=== PATIENT | female | born 1995 ===

== ENCOUNTER 2024-06-20 | Outpatient (REF) | payer SELFPAY ==
[2024-06-21 11:11] LABS: Bacterial Vaginosis PCR POSITIVE (Negative); Candida Group PCR NOT DETECTED (Not Detect); Candida glab krusei PCR NOT DETECTED (Not Detect); Trichomonas vaginalis PCR NOT DETECTED (Not Detect)
== END 2024-06-20 00:01 | disposition home or self-care (01) ==
LOC: HO.LNP
PROVIDERS: Visit Provider General Practice
DX: R10.9 Unspecified abdominal pain (principal)
CPT/HCPCS: 81515

== ENCOUNTER 2024-06-20 10:57 | Outpatient (REF) | payer SELFPAY ==
--- OUTSIDE RECORDS SUMMARY | 2024-06-20 12:10 | XMS_ITS | Clinical Summary ---
Author Organization [employer] Address [address] [facility] 7t [place] [address] Care Team Providers Care Outside Parts Sales Name Role Phone [facility] Primary Care Provider [phone] [phone] Allergies No known active allergies Medications ibuprofen 200 MG tablet Take by mouth. Activ e copper (Paragard) IUD by Intrauterine route 1 (one) time. Active cyclobenzaprin e (Flexeril) 5 MG tabletIndicati ons:Acute left-sided low back pain without sciatica Take 1 tablet (5 mg) by mouth if needed at bedtime for muscle spasms. 20 tablet 4 025 Discontin ued(Thera py completed ) Sod Fluoride-Potas sium Nitrate 1.1-5 % paste [place] teeth for 2 minutes, morning and night. Spit, do not rinse. Do not eat or drink anything for 30 minutes following brushing. 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 10/14/2023 Encounters Date Type Department Care Team Description 06/20/2024 9:45 AM EST Office Visit [facility] [address] [place] [address] Cherie Chase MD Left flank pain (Primary Dx); Encounter for immunization 06/20/2024 Travel 06/08/2024 Patient Outreach [facility] [address] [place], [place] [phone] [place], [place], LIFE TEACHER Pre-visit Planning (SDOH screening negative and tobacco screening negative) 05/23/2024 Telephone [place] [facility] [address] [place] [address] [place], [place], LIFE TEACHER Results 04/27/2024 Telephone [facility] [address] [place] [address] Nuno Hernandez MD New patient appt. from Last 3 Months Immunizations Name Administration Dates Next Due Influenza, seasonal, injectable, preservative fr ee 06/20/2024 MMR 06/20/2024 Pfizer Covid-19 Vaccine 12+ 06/20/2024 Tdap 10/13/2023 Family History Medical History Relation Name Comments No Known Problems Father No Known Problems Mother Diabetes Mother's Sister Cancer Neg Hx Heart disease Neg Hx Relation Name Status Comments Father Alive Mother Alive Mother's Sister Social History Tobacco Use Types Packs/Day Years Used Date Smoking Tobacco: Never Smokeless Tobacco: Never Tobacco Cessation:Counseling Given: Not Answered Alcohol Use Standard Drinks/Week Comments Yes 0 (1 standard drink = 0.6 oz pur e alcohol) occassionally Housing Stability Answer Date Recorded What is your housing situation today? I have jorge watters 10/13/[address] you li ve. Do you have problems with any of the following? None of the above 10/13/2023 Food Insecurity Answer Date Recorded Within the past 12 months, y ou worried that your food would run out before you got money to buy more: Never True 10/13/2023 Within the past 12 months,th e food you bought just didn't last and you didn't have enough money to get more: Never True Transportation Answer Date Recorded In the past 12 months, has l ack of transportation kept you from medical appts, meetings, work or from getting things needed for daily living? No 10/13/2023 Utilities Answer Date Recorded In the past 12 months, has t he electric, gas, oil or water company threatened to shut off services in your home? No 10/13/2023 Depression Answer Date Recorded Patient Health Questionnaire-2 Score 0 10/13/2023 Internet Access Answer Date Recorded Internet Access Q1 Yes 06/08/2024 Internet Access Q2 Not on file 06/08/2024 Comments No Sex and Gender Information Value Date Recorded Sex Assigned at Female 04/22/2022 2:46 PM EST Legal Sex Female 2:46 PM EST Gender Identity Female 10/13/2023 9:53 AM EDT Sexual Orientation Straight 10/14/2023 2: 31 PM EDT Last Filed Vital Signs Vital Sign Reading Time Taken Comments Blood Pressure 116/75 06/20/2024 10:04 AM EST Pulse 62 06/20/2024 10:04 AM EST Temperature 36.4 ??C (97.6 ??F) 06/20/2024 10:[address] Respiratory Rate 17 06/20/2024 10:04 AM EST Oxygen Saturation 99% 06/20/2024 10:04 AM EST Inhaled Oxygen Concentration - - Weight 80.4 kg (177 lb 3.2 oz) 06/20/2024 10:04 AM EST Height 162.6 cm (5' 4 ) 06/20/2024 10:04 AM EST Body Mass Index 30.42 06/20/2024 10:04 AM EST Plan of Treatment Upcoming Encounters Date Type Department Care Team (Late st Contact Info) Description 10/13/2024 2:20 PM EDT Office Visit [place] [facility] MED[facility] [address] [place] [address] [facility] [address] [place] [address] Health Maintenance Due Date Last Done Comments Alcohol/Substance Use Screening 2005 Hepatitis C Screening 2011 Pap Smear 2014 05/07/2001 Cervical Cancer Screening 2023 HPV/Cotest 2023 Dental Oral Exam 05/11/2024 11/09/2023 Dental Prophylaxis 05/11/2024 11/09/2023 HPV Vaccines (3 - 3-dose SCD M series) 07/19/2024 03/13/2024, 01/17/2024 Depression Screening 10/12/2024 10/13/2023, 10/13/2023 Family Planning (PISQ) 10/12/2024 10/13/2023 Dental X-Ray: Bitewings 11/09/2024 11/09/2023 SDOH Screening 06/08/2025 06/08/2024 Tobacco Screening 06/20/2025 06/20/2024 Dental X-Ray: Full Mouth 11/09/2026 11/09/2023 DTaP/Tdap/Td Vaccines (2 - T d or Tdap) 10/12/2033 10/13/2023 Zoster Vaccines (1 of 2) 2043 RSV Patients and Patients Aged 60 years or older (1 - 1-dose 75+ series) 01/25/2068 HIV Screening Completed 10/13/2023 COVID-19 Vaccine Completed 06/20/2024, 12/25/2020 Influenza Vaccine Completed 06/20/2024 HIB Vaccines Aged Out No longer eligi ble based on patient's age to complete this topic Hepatitis A Vaccines Aged Out No long er eligible based on patient's age to complete this topic Hepatitis B Vaccines Discontinued IPV Vaccines Aged Out No longer eligi ble based on patient's age to complete this topic Meningococcal Vaccine Aged Out No mode ricardo eligible based on patient's age to complete this topic Pneumococcal Vaccine: Pediatrics (0 to 5 Years) and At-Risk Patients (6 to 64 Years) Aged Out No longer eligible based on patient's age to complete this topic RSV under 20 months Aged Out No longe r eligible based on patient's age to complete this topic Rotavirus Vaccines Aged Out No longer eligible based on patient's age to complete this topic Procedures Procedure Name Priority Date/Time Associated Diagnosis Comments US PELVIS TRANSVAGINAL Routine 05/19/2024 Calcification of ovary PROPHYLAXIS - ADULT Routine 11/09/2023 3 :00 PM EDT Dental plaque Dental calculus DIAGNOSTIC - DIAGNOSTIC IMAGING - INTRAORAL - COMPREHENSIVE SERIES OF RADIOGRAPHIC IMAGES Routine 11/09/2023 3:00 PM EDT COMPREHENSIVE ORAL EVALUATION - NEW OR ESTABLISHED PATIENT Routine 11/09/2023 3:00 PM EDT HIV 1/2 ANTIGEN/ANTIBODY, FOURTH GENERATION W/RFL Routine 10/13/2023 Screening for HIV (human immunodeficiency virus) HM PAP/HPV Routine 05/07/2001 11:14 AM EST from Last 3 Months or Most Recently Relevant to Health Maintenance Results * US Pelvis Transvaginal (05/19/2024) Anatomical Region Laterality Modality Pelvis Ultrasound [facility] IMG US PROCEDURES Final R esult * HIV-1/2 Antigen and Antibodies, Fourth Generation, with Reflexes (10/13/2023) Blood Venous blood specimen / Unknown [facility] LAB BLOOD ORDERABLES Manuela l Result EXTERNAL LAB * HM PAP/HPV (05/07/2001 11:14 AM EST) [facility] HEALTH MAINTENANCE Final Result from Last 3 Months or Most Recently Relevant to Health Maintenance Insurance [employer] FULL [employer] FULL [facility]AL[facility] MEDICAID LIMITED ADULT DENTAL - N FULL (MEDICAID) Care Teams Outside Parts Sales Relationship Specialty Start Date End Date Helena Ivan, LIFE TEACHER [address] [place] [address] PCP - General Family Medicine 09/17/23
--- OUTSIDE RECORDS SUMMARY | 2024-06-20 12:10 | XMS_ITS | Encounter Summary ---
Author Organization [employer] Address [address] [facility] 7t [place] [address] Care Team Providers Care Shellfish Shucker Name Role Phone [facility] [place] [facility] Primary Care Provider [phone] Reason for Visit * Reason Onset Date Comments Results 05/23/2024 Encounter Details Date Type Department Care Team ([facility] Contact Info) Description 05/23/2024 Telephone [place] [facility] MED[facility] [address] [place] [address] [facility] [address] [place] [address] Results Social History Tobacco Use Types Packs/Day Years Used Date Smoking Tobacco: Never Smokeless Tobacco: Never Alcohol Use Standard Drinks/Week Comments Yes 0 [...] Recorded Patient Health Questionnaire-2 Score 0 10/13/2023 Comments No Sex and Gender Information Value Date Recorded Sex Assigned at Female 04/22/2022 2:46 PM EST Legal Sex Female 2:46 PM EST Gender Identity Female 10/13/2023 9:53 AM EDT Sexual Orientation Straight 10/14/2023 2: 31 PM EDT documented as of this encounter Miscellaneous Notes * Telephone Encounter - Madeline Leon LPN - 05/23/2024 2:11 PM EST Call placed to patient via bail bondsman # [id number]. Provider message given to patient. No questions noted. * Telephone Encounter - NICHOLE Dietz - 05/23/2024 9:37 AM EST Pelvic ultrasound shows stable calcifications in right ovary, no follow up needed. documented in this encounter Plan of Treatment Upcoming Encounters Date Type Department Care Team (Late st Contact Info) Description 10/13/2024 2:20 PM EDT Office Visit [place] [facility] MED[facility] [address] [place] [address] Hel[place] Ivan FNP [address] [facility] [place] [address] documented as of this encounter Visit Diagnoses Not on filedocumented in this encounter Care Teams Shellfish Shucker Relationship Specialty Start Date End Date Helena Ivan FNP 70 [facility] [place] [address] PCP - General Family Medicine 09/17/23 documented as of this encounter
--- OUTSIDE RECORDS SUMMARY | 2024-06-20 12:10 | XMS_ITS | Encounter Summary ---
Author Organization [employer] Address [address] [facility] 7t [place] [address] Care Team Providers Care Pie Bakery Laborer Name Role Phone Helena Ivan DIE FITTER Primary Care Provider [phone] Encounter Details Date Type Department Care Team (Latest Contact Info) Description 06/20/2024 Travel Social History Tobacco Use Types Packs/Day Years [...] PM EDT documented as of this encounter Plan of Treatment Upcoming Encounters Date Type Department Care Team (Late st Contact Info) Description 10/13/2024 2:20 PM EDT Office Visit [place] [facility] MED[facility] [address] [place] [address] Helena Iavn FNP [address] [place] [address] documented as of this encounter Visit Diagnoses Not on filedocumented in this encounter Care Teams Pie Bakery Laborer Relationship Specialty Start Date End Date Helena Ivan FNP [address] [place] [address] PCP - General Family Medicine 09/17/23 documented as of this encounter
--- OUTSIDE RECORDS SUMMARY | 2024-06-20 12:10 | XMS_ITS | Encounter Summary ---
Author Organization [employer] Address [address] [facility] 7t [place] [address] Care Team Providers Care Search Optimization Analyst Name Role Phone [facility] Primary Care Provider [phone] Reason for Visit * Reason Comments Pre-visit Planning SDOH screening negat jose and tobacco screening negative Encounter Details Date Type Department Care Team ([facility] st Contact Info) Description 06/08/2024 Patient Outreach [facility] [address] [place] [address] [place], [place], [facility] [address] [place] [address] Pre-visit Planning (SDOH screening negative and tobacco screening negative) Social History Tobacco Use Types Packs/Day Years [...] PM EDT documented as of this encounter Progress Notes * Zuleima Bird - 06/08/2024 8:54 AM EST AMBIKA Dewey placed successful outbound call to patient for pre-visit planning. Patient name and confirmed. Patient confirms appt date and time, and has transportation. Biggest concern for appointment at this time is slight pain due to kidney stones Patient advised to bring to appointment a photo id and insurance card. Appropriate screenings completed in anticipation of appointment. documented in this encounter Plan of Treatment Upcoming Encounters Date Type Department Care Team (Late st Contact Info) Description 10/13/2024 2:20 PM EDT Office Visit [place] [facility] [address] [place] [address] [place], [place] [facility] [address] [place] [address] documented as of this encounter Visit Diagnoses Not on filedocumented in this encounter Care Teams Search Optimization Analyst Relationship Specialty Start Date End Date [facility] [place] [facility] [address] [place] [address] PCP - General Family Medicine 09/17/23 documented as of this encounter
--- OUTSIDE RECORDS SUMMARY | 2024-06-20 12:10 | XMS_ITS | Encounter Summary ---
Author Organization [employer] Address [address] [facility] 7t [place] [address] Care Team Providers Care Medical Underwriter Name Role Phone Helena Ivan [facility] Primary Care Provider [phone] Reason for Visit * Reason Comments Nerw patient Encounter Details Date Type Department Care Team (Late st Contact Info) Description 06/20/2024 9:45 AM EST Office Visit [facility] [address] [place] [address] Cherie Chase MD [address] [place], [place] [phone] Left flank pain (Primary Dx); Encounter for immunization Social History Tobacco Use Types Packs/Day Years [...] PM EDT documented as of this encounter Last Filed Vital Signs Vital Sign Reading [...] Mass Index 30.42 06/20/2024 10:04 AM EST documented in this encounter Plan of Treatment Upcoming Encounters Date Type Department Care Team (Late st Contact Info) Description 10/13/2024 2:20 PM EDT Office Visit [place] [facility] MED[facility] [address] [place] [address] [facility] [address] [place] [address] Scheduled Orders Name Type Priority Associated Diagnoses Orde r Schedule Comprehensive Metabolic Panel Lab Routine Left flank pain Expected: 06/20/2024 (Approximate), Expires: 06/20/2025 Chlamydia/N. Gonorrhoeae RNA, TMA, Urogenitial Microbiology Routine Left flank pain Expected: 06/20/2024 (Approximate), Expires: 06/20/2025 documented as of this encounter Visit Diagnoses Diagnosis Left flank pain- Primary Abdominal pain, unspecified site Encounter for immunization documented in this encounter Care Teams Medical Underwriter Relationship Specialty Start Date End Date Helena Ivan FNP [address] [place] [address] PCP - General Family Medicine 09/17/23 documented as of this encounter
--- OUTSIDE RECORDS SUMMARY | 2024-06-20 12:10 | XMS_ITS | Encounter Summary ---
Author Organization [employer] Address [address] [facility] 7t [place] [address] Care Team Providers Care Marine Structural Welder Name Role Phone [facility] Primary Care Provider [phone] Encounter Details Date Type Department Care Team (Late st Contact Info) Description 10/28/2023 Orders Only [facility] [address] [place] [address] [place], [place], [facility] [address] [place] [address] Social History Tobacco Use Types Packs/Day Years [...] 10/13/2024 2:20 PM EDT Office Visit [place] [facility] MED[facility] [address] [place] [address] Helena Ivan FNP [address] [place] [address] documented as of this encounter Procedures Procedure Name Priority Date/Time Associated Diagnosis Comments PAP/HPV Routine 05/07/2001 11:14 AM EST documented in this encounter Results * HM PAP/HPV (05/07/2001 11:14 AM EST) [facility] HEALTH MAINTENANCE Final Result documented in this encounter Visit Diagnoses Not on filedocumented in this encounter Care Teams Marine Structural Welder Relationship Specialty Start Date End Date Helena Ivan FNP 70 [place] [address] PCP - General Family Medicine 09/17/23 documented as of this encounter
[2024-06-20 13:48] LABS: Alanine Aminotransferase 13 U/L (0-31); Albumin Level 3.8 g/dL (3.5-5.0); Alkaline Phosphatase 53 U/L (39-117); Anion Gap 8 (12-20); Aspartate Amino Transferase 22 U/L (5-31); Bilirubin Total 0.7 mg/dL (0.0-1.0); Blood Urea Nitrogen 9 mg/dL (9-16); Calcium 8.6 mg/dL (8.4-10.2); Carbon Dioxide 28 mmol/L (22-29); Chloride 105 mmol/L (96-108); Estimated Glomerular Filt Rate > 60; Glucose Random 90 mg/dL (60-115); Potassium 4.1 mmol/L (3.3-5.1); Sodium 137 mmol/L (135-145); Total Protein 7.2 g/dL (6.5-8.0)
[2024-06-20 17:26] LABS: CT PCR NOT DETECTED (Not Detect.); NG PCR NOT DETECTED (Not Detect.)
== END 2024-06-20 10:58 | disposition home or self-care (01) ==
LOC: HO.HHCL 10:57
PROVIDERS: Visit Provider General Practice
DX: R10.9 Unspecified abdominal pain (principal)
CPT/HCPCS: 80053; 87491; 87591

== ENCOUNTER 2025-04-21 07:13 | Outpatient (REF) | payer MEDICAID, OTHER, SELFPAY ==
--- NOTE | ~2025-04-21 | CT_ITS ---
EXAMINATION: CT ABDOMEN AND PELVIS WITHOUT CONTRAST CLINICAL INFORMATION: Left-sided back pain history of kidney stones. Rule out-nephrolithiasis. COMPARISON: None available. TECHNIQUE: Multidetector volumetric imaging was performed from the superior aspect of the liver through the pubic symphysis. Sagittal and coronal reformatted images were obtained on the technologist's workstation. This CT examination was performed using dose optimization techniques as appropriate, variously including the following: *Automated exposure control *Adjustment of mA and/or kV according to patient size (this includes techniques or standardized protocols for targeted exams where dose is matched to indication/reason for exam; i.e. extremities or head) *Use of iterative reconstruction technique FINDINGS: LUNG BASES: Lung bases are clear. LIVER, GALLBLADDER, AND BILIARY TREE: Right lobe measures 18.8 cm craniocaudal. No suspicious liver lesions. No biliary duct dilatation. The gallbladder is unremarkable with no evidence of radiopaque gallstones, gallbladder wall thickening, or obvious pericholecystic inflammatory changes. PANCREAS: Unremarkable. No acute inflammatory changes. SPLEEN: Unremarkable. ADRENAL GLANDS: Unremarkable. KIDNEYS AND URETERS: Multiple left renal calculi. 16 mm calcification in the upper pole calyceal region; 2 mm calculus in the midpole, and 2 mm calculus in the lower pole calyceal region. No ureteral calculi. No hydronephrosis. No right renal calculi. BLADDER: 6 mm calcification in the posterior left bladder, nonspecific, could represent a calculus. No bladder wall thickening is seen. Bladder is partially distended. GASTROINTESTINAL TRACT: Small hiatal hernia. Stomach is partially distended. Nonobstructive bowel gas pattern. No bowel inflammatory changes are seen. Appendix appears unremarkable. Peritoneum: No ascites. No pneumoperitoneum. No fluid collections. No significant mesenteric inflammatory changes. ABDOMINAL WALL: Small fat-containing umbilical hernia. LYMPH NODES: No bulky adenopathy. VASCULAR: Normal caliber aorta. PELVIC VISCERA: 2 small punctate calculi in the right pelvis, one punctate calculus in the pelvis could represent phleboliths, nonspecific adnexal calcifications. OSSEOUS STRUCTURES: Multilevel mild thoracolumbar degeneration. . CT/CT abdomen pelvis wo IV con IMPRESSION: * Multiple left renal nonobstructing calculi, larger calculus measuring 16 mm in the upper pole calyceal region. No ureteral calculi. No hydronephrosis. * 6 mm calcification the posterior bladder, nonspecific. * Hepatomegaly. * Additional findings as above Fleischner guidelines were followed. Electronically signed by: Jersey Avelar MD 04/23/2025 08:38 AM [facility]
--- OUTSIDE RECORDS SUMMARY | 2025-04-21 07:15 | XMS_ITS | Encounter Summary ---
Author Organization [facility] Address [address] [facility] [address] [place] [phone] Phone Care Team Providers Care Heel Sorter Name Role Phone Helena Ivan FUEL CELL SYSTEMS ENGINEER Primary Care Provider Encounter Details Date Type Department Care Team (Latest Contact Info) Description 11/03/2023 Transcribe Orders Virtual Department [address] [place] [address] Helena Ivan, FUEL CELL SYSTEMS ENGINEER [address] [place] [address] Calcification of ovary (Primary Dx) Social History Tobacco Use Types Packs/Day Years Used Date Smoking Tobacco: Never Assessed Education Answer Date Recorded Are you interested in more education? Not on connor e 10/11/2023 Are you concerned about learning? Not on file 10/11/2023 No 10/11/2023 No 10/11/2023 Digital Access Answer Date Recorded No 10/11/2023 No 10/11/2023 Reliable internet access at home? Not on file 10/11/2023 Device with a working camera? Not on file Intimate Partner Violence Answer Date R ecorded Are you denied basic needs s uch as food, clothing, or medical care? No 10/11/2023 In the past 12 months have y ou been in a relationship with a person who hurts, threatens, or tries to control you? No 10/11/2023 Are you denied basic needs s uch as food, clothing, or medical care? No 10/11/2023 In the past 12 months have y ou been in a relationship with a person who hurts, threatens, or tries to control you? No 10/11/2023 Comments Unknown Sex and Gender Information Value Date Recorded Sex Assigned at Female 10/11/2023 2:41 AM EDT Legal Sex Female 2:18 AM EDT Gender Identity Female 10/11/2023 2:41 AM EDT Sexual Orientation Straight 10/11/2023 3: 43 AM EDT documented as of this encounter Plan of Treatment Not on file documented as of this encounter Visit Diagnoses Diagnosis Calcification of ovary- Primary documented in this encounter Care Teams Heel Sorter Relationship Specialty Start Date End Date Helena Ivan NP PCP - General Nurse Practitioner 10/13/23 documented as of this encounter Additional Source Comments The information contained in this document represents components of the legal health record. It is not the complete legal health record.[facility]
--- OUTSIDE RECORDS SUMMARY | 2025-04-21 07:15 | XMS_ITS | Encounter Summary ---
Author Organization [employer] Address [address] [facility] 7t [place] [address] Care Team Providers Care Engine Boss Name Role Phone [facility] Primary Care Provider [phone] Cherie Chase MD Primary Care Provider [phone] Encounter Details Date Type Department Care Team (Late st Contact Info) Description 10/28/2023 Orders Only [facility] [address] [place] [address] [facility] [address] [place] [address] Social History Tobacco Use Types Packs/Day Years [...] on file documented as of this encounter Procedures Procedure Name Priority Date/Time Associated Diagnosis Comments HM PAP/HPV Routine 05/07/2001 11:14 AM EST documented in this encounter Results * HM PAP/HPV (05/07/2001 11:14 AM EST) [facility] HEALTH MAINTENANCE Final Result documented in this encounter Visit Diagnoses Not on filedocumented in this encounter Care Teams Engine Boss Relationship Specialty Start Date End Date [facility] [address] [place] [address] PCP - General Family Medicine 09/17/23 06/20/24 Cherie Chase MD [address] [place] [address] PCP - General Family Medicine 06/21/24 documented as of this encounter
--- OUTSIDE RECORDS SUMMARY | 2025-04-21 07:15 | XMS_ITS | Encounter Summary ---
Author Organization [facility] Address [address] [facility] [address] [place] [phone] Phone Care Team Providers Care Cyber Systems Administrator Name Role Phone Pcp, Unknown Primary Care Provider Helena Arcos ROTOR WINDER Primary Care Provider Encounter Details Date Type Department Care Team (Late st Contact Info) Description 10/11/2023 Procedure Pass [facility], Ct Scan - [address] [address] Social History Tobacco Use Types Packs/Day Years [...] AM EDT documented as of this encounter Functional Status * Calculated C-SSRS Risk Score (Lifetime/Recent) Answer Date of Assessment Author No Risk Indicated 10/11/2023 2:39 AM EDT Caren Martin RN * [place] Suicide Severity Rating Scale (Screener/Recent Self-Report) Question Answer Date of Assessment Author 1. Wish to be (Past 1 Month) No 10/11/2023 2:39 AM EDT Caren Martin RN 2. Non-Specific Active Suicidal Thoughts (Past 1 Month) No 10/11/2023 2:39 AM EDT Caren Martin RN 6. Suicidal Behavior (Lifetime) No 10/11/2023 2:39 AM EDT Caren Martin RN documented as of this encounter Plan of Treatment Not on file documented as of this encounter Visit Diagnoses Not on filedocumented in this encounter Care Teams Cyber Systems Administrator Relationship Specialty Start Date End Date Pcp, Unknown PCP - General 10/11/23 10/12/23 Helena Ivan NP PCP - General Nurse Practitioner 10/13/23 documented as of this encounter Additional Source Comments The information contained in this document represents components of the legal health record. It is not the complete legal health record.[facility]
--- OUTSIDE RECORDS SUMMARY | 2025-04-21 07:15 | XMS_ITS | Encounter Summary ---
Author Organization [facility] Address [address] [place] [address] Phone Care Team Providers Care Combatant Diver Officer Name Role Phone Helena Ivan ENGINEERING GROUP MANAGER Primary Care Provider Encounter Details Date Type Department Care Team (Latest Contact Info) Description 10/13/2023 Transcribe Orders Virtual Department [address] [place] [address] Helena Ivan, ENGINEERING GROUP MANAGER [address] [place] [address] Calcification of ovary (Primary Dx) Social History [...] on file documented as of this encounter Results * US PELVIS TRANSABDOMINAL PLUS TRANSVAGINAL (10/15/2023 2:29 PM EDT) Anatomical Region Laterality Modality Pelvis, Uterus/Adnexa Ultrasound 10/19/2023 9:23 AM EDT Impressions 10/21/2023 9:18 AM EDT 1. Thickened endometrium for postmenopausal patient measuring 1.8 cm (upper limit of normal 1.6 cm). 2. Intrauterine device at expected location within the endometrium. 3. Scattered punctate echogenic foci at the right ovary measuring up to [address] appearance, findings are suggestive of calcifications. No focal associated lesion demonstrated sonographically. Findings are again nonspecific but likely benign. Consider follow-up sonography in 6-12 months Narrative 10/21/2023 9:18 AM EDT US PELVIS TRANSABDOMINAL PLUS TRANSVAGINAL Referring clinician's provided indication for this examination in Epic: Outside Radiology Order; calcification of ovary TECHNIQUE: Pelvic Ultrasound Transabdominal performed for global imaging of the pelvis. Pelvic Ultrasound Transvaginal performed for detailed imaging of the endometrium and/or adnexa. COMPARISON: CT abdomen pelvis 10/11/2023 FINDINGS: Uterus: Size: 10.0 x 4.7 x 5.9 cm. Orientation: Myometrium: Normal. Endometrium: The endometrium is thickened measuring 1.8 cm. Intrauterine device at expected location within the endometrium. Right adnexa: Ovary: The right ovary measures 3.8 x 2.9 x 2.8 cm. In keeping with findings of prior CT, scattered punctate echogenic foci are demonstrated the largest of which measures up to 5 mm. No definite shadowing demonstrated sonographically. No discrete lesion is demonstrated sonographically. Normal color and spectral Doppler waveform analysis. Left adnexa: Ovary: Normal. The left ovary measures 3.3 x 3.0 x 2.5 cm. Normal color and spectral Doppler waveform analysis Free fluid: No significant free fluid. Procedure Note Glo Franks MD - 10/21/2023 US PELVIS TRANSABDOMINAL PLUS TRANSVAGINAL Referring clinician's provided indication for this examination in Epic:Outside Radiology Order; calcification of ovary TECHNIQUE: Pelvic Ultrasound Transabdominal performed for global imagingof the pelvis. Pelvic Ultrasound Transvaginal performed for detailedimaging of the endometrium and/or adnexa. COMPARISON: CT abdomen pelvis 10/11/2023 FINDINGS: Uterus: Size: 10.0 x 4.7 x 5.9 cm. Orientation: Myometrium: Normal. Endometrium: The endometrium is thickened measuring 1.8 cm. Intrauterinedevice at expected location within the endometrium. Right adnexa: Ovary: The right ovary measures 3.8 x 2.9 x 2.8 cm. In keeping with findings ofprior CT, scattered punctate echogenic foci are demonstrated the largestof which measures up to 5 mm. No definite shadowing demonstratedsonographically. No discrete lesion is demonstrated sonographically.Normal color and spectral Doppler waveform analysis. Left adnexa: Ovary: Normal. The left ovary measures 3.3 x 3.0 x 2.5 cm. Normal color andspectral Doppler waveform analysis Free fluid: No significant free fluid. IMPRESSION: 1. Thickened endometrium for postmenopausal patient measuring 1.8 cm(upper limit of normal 1.6 cm). 2. Intrauterine device at expected location within the endometrium. 3. Scattered punctate echogenic foci at the right ovary measuring up to5 mm. [address] appearance, findings are suggestive ofcalcifications. No focal associated lesion demonstrated sonographically.Findings are again nonspecific but likely benign. Consider follow-upsonography in 6-12 months Helena Ivan NP IMG US PELVIS Final Result documented in this encounter Visit Diagnoses Diagnosis Calcification of ovary- Primary Calcification of ovary documented in this encounter Care Teams Combatant Diver Officer Relationship Specialty Start Date End Date Helena Ivan NP PCP - General Nurse Practitioner 10/13/23 documented as of this encounter Additional Source Comments The information contained in this document represents components of the legal health record. It is not the complete legal health record.[facility]
--- OUTSIDE RECORDS SUMMARY | 2025-04-21 07:15 | XMS_ITS | Encounter Summary ---
Author Organization [employer] Address [address] [facility] 7[address] [place] [address] Care Team Providers Care Openstack Developer Name Role Phone Cherie Chase MD Primary Care Provider [phone] Encounter Details Date Type Department Care Team (Late st Contact Info) Description 06/21/2024 Orders Only [facility] [address] [place], [place] [phone] Cherie Chase MD [address] [place], [place] [phone] Bacterial vaginosis (Primary Dx) Social History Tobacco Use Types Packs/Day Years Used Date Smoking Tobacco: Never Smokeless Tobacco: Never Alcohol Use Standard Drinks/Week Comments Yes 0 (1 standard drink = 0.6 oz pur e alcohol) occassionally Alcohol Answer Date Recorded How often do you have a drink containing alcohol ? 1 06/24/2024 How many drinks containing a lcohol do you have on a typical day when you are drinking? 2 06/24/2024 How often do you have six or more drinks on one occasion? 2 06/24/2024 Housing Stability Answer Date Recorded What is [...] as of this encounter Visit Diagnoses Diagnosis Bacterial vaginosis- Primary Unspecified vaginitis and vulvovaginitis documented in this encounter Care Teams Openstack Developer Relationship Specialty Start Date End Date Cherie Chase MD [address] [place] [id number] PCP - General Family Medicine 06/21/24 documented as of this encounter
--- OUTSIDE RECORDS SUMMARY | 2025-04-21 07:15 | XMS_ITS | Encounter Summary ---
Author Organization [facility] Address [address] [place] [address] Phone Care Team Providers Care Stockroom Associate Name Role Phone Helena Ivan MANAGER PLANT Primary Care Provider Encounter Details Date Type Department Care Team (Latest Contact Info) Description 11/19/2023 Transcribe Orders Virtual Department [address] [place] [address] Helena Ivan, MANAGER PLANT [address] [place] [address] Calcification of ovary (Primary Dx) Social History [...] Results * US PELVIS TRANSABDOMINAL PLUS TRANSVAGINAL (05/19/2024 4:28 PM EST) Anatomical Region Laterality Modality Pelvis, Uterus/Adnexa Ultrasound 05/19/2024 4:31 PM EST Impressions 05/19/2024 4:38 PM EST Similar few very small echogenic foci in the right ovary, again could be calcifications. 3 mm endometrium. No acute abnormality. Narrative 05/19/2024 4:38 PM EST US PELVIS TRANSABDOMINAL PLUS TRANSVAGINAL Referring clinician's provided indication for this examination in Epic: Outside Radiology Order; calcification of ovary TECHNIQUE: Pelvic Ultrasound Transabdominal performed for global imaging of the pelvis. Pelvic Ultrasound Transvaginal performed for detailed imaging of the endometrium and/or adnexa. COMPARISON: US PELVIS TRANSABDOMINAL PLUS TRANSVAGINAL FINDINGS: Uterus: The uterus measures 9.4 cm. The myometrium is homogeneous. The uterus is anteverted in its positioning. No focal cervical masses. No focal myometrial findings. Endometrium: The endometrium measures 3 mm and appears homogeneous. No endometrial masses. An intrauterine device is identified in appropriate position within the upper endometrial endometrial cavity. The left and right limbs of the intrauterine device are well visualized and are intact/normal. Ovaries: The right ovary measures 2.8 x 2.3 x 2.6 cm, has a few very small echogenic foci, similar compared to the prior.. No evidence of solid mass or cyst greater than 3 cm. Vascularity Right Ovary: There is normal color Doppler flow to the ovary. The left ovary measures 3.3 x 4.2 x 3.4 cm, with a 2.7 x 2.5 x 2.6 cm dominant follicle. No evidence of solid mass or cyst greater than 3 cm. Vascularity Left Ovary: There is normal color Doppler flow to the ovary. Fluid: There is no evidence of free pelvic fluid. Procedure Note Mary Jane Brand MD - 05/19/2024 US PELVIS TRANSABDOMINAL PLUS TRANSVAGINAL Referring clinician's provided indication for this examination in Epic:Outside Radiology Order; calcification of ovary TECHNIQUE: Pelvic Ultrasound Transabdominal performed for global imagingof the pelvis. Pelvic Ultrasound Transvaginal performed for detailedimaging of the endometrium and/or adnexa. COMPARISON: US PELVIS TRANSABDOMINAL PLUS TRANSVAGINAL FINDINGS: Uterus: The uterus measures 9.4 cm. The myometrium is homogeneous. The uterus isanteverted in its positioning. No focal cervical masses. No focalmyometrial findings. Endometrium: The endometrium measures 3 mm and appears homogeneous. No endometrialmasses. An intrauterine device is identified in appropriate positionwithin the upper endometrial endometrial cavity. The left and right limbsof the intrauterine device are well visualized and are intact/normal. Ovaries: The right ovary measures 2.8 x 2.3 x 2.6 cm, has a few very smallechogenic foci, similar compared to the prior.. No evidence of solid mass or cyst greater than 3 cm. Vascularity Right Ovary: There is normal color Doppler flow to theovary. The left ovary measures 3.3 x 4.2 x 3.4 cm, with a 2.7 x 2.5 x 2.6 cmdominant follicle. No evidence of solid mass or cyst greater than 3 cm. Vascularity Left Ovary: There is normal color Doppler flow to the ovary. Fluid: There is no evidence of free pelvic fluid. IMPRESSION: Similar few very small echogenic foci in the right ovary, again could becalcifications. 3 mm endometrium. No acute abnormality. Helena Ivan NP [facility] US PELVIS Final Result documented in this encounter Visit Diagnoses Diagnosis Calcification of ovary- Primary Calcification of ovary documented in this encounter Care Teams Stockroom Associate Relationship Specialty Start Date End Date Helena Ivan NP PCP - General Nurse Practitioner 5/22/24 documented as of this encounter Additional Source Comments The information contained in this document represents components of the legal health record. It is not the complete legal health record.[facility]
--- OUTSIDE RECORDS SUMMARY | 2025-04-21 07:15 | XMS_ITS | Clinical Summary ---
Author Organization [facility] Address [address] [place] [phone] Phone Care Team Providers Care Rope Cutter Name Role Phone Helena Ivan SAÚL Primary Care Provider Allergies No known active allergies Medications morphine (MSIR) 15 MG tablet Take 0.5 tablets (7.5 mg total) by mouth every 4 (four) hours as needed for pain (specific location in comments). Partial fill ok 8 tablet 10/11/2023 Active Encounters Date Type Department Care Team Description 03/07/2025 Transcribe Orders [facility] [address] [place] [address] Nuno Barragan MD Encounter for rehabilitation (Primary Dx) from Last 3 Months Social History Tobacco Use Types Packs/Day Years [...] Orientation Straight 10/11/2023 3: 43 AM EDT Last Filed Vital Signs Vital Sign Reading Time Taken Comments Blood Pressure 110/72 10/11/2023 5:25 AM EDT Pulse 62 10/11/2023 5:25 AM EDT Temperature 37.2 C (98.9 F) 10/11/2023 5:25 AM EDT Respiratory Rate 16 10/11/2023 5:25 AM EDT Oxygen Saturation 99% 10/11/2023 5:25 AM EDT Inhaled Oxygen Concentration - - Weight 74.8 kg (165 lb) 10/11/2023 2:37 AM EDT Height 163 cm (5' 4.17 ) 10/11/2023 2:37 AM EDT Body Mass Index 28.17 10/11/2023 2:37 AM EDT Plan of Treatment Health Maintenance Due Date Last Done Comments DEPRESSION SCREENING 2005 SMOKING Hx and SMOKELESS TOBACCO SCREENING 2006 PAP SMEAR 2014 INFLUENZA VACCINE (#1) 2024 COVID-19 VACCINE (2024-2 6 season) 2025 Adult Td,Tdap Booster 10/12/2033 10/13/2023 HEPATITIS C SCREENING Completed 10/13/2023 , 10/13/2023 HIV ONE-TIME SCREENING (18-6 5 YEARS) Completed 10/13/2023 HIB VACCINES Aged Out No longer eligi ble based on patient's age to complete this topic MENINGOCOCCAL VACCINES (ACWY) Aged Out No longer eligible based on patient's age to complete this topic MENINGOCOCCAL VACCINES (B) Aged Out N o longer eligible based on patient's age to complete this topic PNEUMOCOCCAL VACCINES (0-49 years) Aged Out No longer eligible b ased on patient's age to complete this topic Medical Devices Not on file Procedures Procedure Name Priority Date/Time Associated Diagnosis Comments HEPATITIS C ANTIBODY, QUALITATIVE Routine 10/13/2023 12:42 PM EDT Need for hepatitis C screening test from Last 3 Months or Most Recently Relevant to Health Maintenance Results * Hepatitis C antibody, qualitative (10/13/2023 12:42 PM EDT) HCV NON-REACTIV E NON-REACTI VE [facility] Blood 10/13/2023 12:4 2 PM EDT 10/13/2023 12:50 PM EDT Helena Ivan MATERIALS PLANNER LAB BLOOD BKR ORDERABL ES Final Result [facility] [address] [place] [address] from Last 3 Months or Most Recently Relevant to Health Maintenance Insurance [facility] [place]ULL [place] NET [facility] SAFETY NET FULL [place] [facility] SAFETY NET FULL [address] [place], [place] [address]HEALTH LIMITED [facility] SAFETY NET FULL [address] [place], [place] [address]HEALTH LIMITED [facility] FULL Care Teams Rope Cutter Relationship Specialty Start Date End Date Helena Ivan NP PCP - General Nurse Practitioner 10/13/23 Additional Source Comments The information contained in this document represents components of the legal health record. It is not the complete legal health record.[facility]
--- OUTSIDE RECORDS SUMMARY | 2025-04-21 07:15 | XMS_ITS | Clinical Summary ---
Author Organization [employer] Address [address] [facility] 7[address] [place] [address] Care Team Providers Care Photoengraving Supervisor Name Role Phone Cherie Chase MD Primary Care Provider [phone] Allergies No known active allergies Medications copper (Paragard) IUD by Intrauterine route 1 (one) time. Active tiZANidine (Zanaflex) 2 MG tabletIndicatio ns:Acute left-sided low back pain with left-sided sciatica Take 1 tablet (2 mg) by mouth every 8 (eight) hours if needed for muscle spasms for up to 10 days. 30 tablet Active Active Problems Problem Noted Date Diagnosed Date Acute left-sided low back pain with left-sided s ciatica 03/06/2025 Assessment & Plan (03/06/2025 2:28 PM EDT): Symptomatology suggestive of this On exam, evidence of muscle spasm Plan: NSAIDS, Muscle relaxant Plain films LS spine PT evaluation U/A trace blood. Pt dodes have a history of Nephrolithiasis Plan: Obtain CT Abdomen and pelvis to rule out nephrolithiasis HCG: Negative Dental plaque 07/04/2024 Normal oral exam 07/04/2024 Gingival recession, localized 10/14/2023 Gingivitis, acute, plaque induced 10/14/2023 Excessive attrition of teeth, limited to enamel 10/14/2023 Encounters Date Type Department Care Team Description 03/06/2025 2:20 PM EDT Office Visit [facility] [address] [place] [phone] Nuno Hernandez MD Acute left-sided low back pain with left-sided sciatica (Primary Dx); Other back pain, unspecified chronicity 03/06/2025 Travel 03/06/2025 Telephone [facility] [address] [place] [phone] Cherie Chase MD Nurse Triage from Last 3 Months Immunizations Immunization Administration Dates Next Due Influenza, seasonal, injectable, [...] Not Answered Alcohol Use Standard Drinks/Week Comments Not Currently 0 (1 standard drink = 0.6 oz [...] Sign Reading Time Taken Comments Blood Pressure 120/68 03/06/2025 2:08 PM EDT Pulse 61 03/06/2025 2:08 PM EDT Temperature 36.1 C (96.9 F) 03/06/2025 2:08 PM EDT Respiratory Rate 20 03/06/2025 2:08 PM EDT Oxygen Saturation 100% 03/06/2025 2:08 PM EDT Inhaled Oxygen Concentration - - Weight 80.7 kg (178 lb) 03/06/2025 2:08 PM EDT Height 165.1 cm (5' 5 ) 03/06/2025 2:08 PM EDT Body Mass Index 29.62 03/06/2025 2:08 PM EDT Plan of Treatment Health Maintenance Due Date Last Done Comments Disability Screening 1993 Hepatitis C Screening 2011 Pap Smear 2014 05/07/2001 Cervical Cancer Screening 2023 HPV/Cotest 2023 Depression Screening 10/12/2024 10/13/2023, 10/13/2023 Dental Oral Exam 01/02/2025 07/04/2024, 11/09/2023 Dental Prophylaxis 01/02/2025 07/04/2024, 11/09/2023 COVID-19 Vaccine (3 - 2024-2 6 season) 2025 06/20/2024, 12/25/2020 Influenza Vaccine (#1) 2025 06/20/2024 SDOH Screening 06/08/2025 06/08/2024 Alcohol/Substance Use Screening 06/24/2025 06/24/2024 Family Planning (PISQ) 06/24/2025 06/24/2024 Dental X-Ray: Bitewings 07/05/2025 07/04/19 25, 11/09/2023 Tobacco Screening 03/06/2026 03/06/2025 Dental X-Ray: Full Mouth 11/09/2026 11/09/2023 DTaP/Tdap/Td Vaccines (2 - T d or Tdap) 10/12/2033 10/13/2023 Zoster Vaccines (1 of 2) 2043 RSV Patients and Patients Aged 60 years or older (1 - 1-dose 75+ series) 01/25/2068 HIV Screening Completed 10/13/2023 Hepatitis B Vaccines Discontinued 10/13/2023 HPV Vaccines Completed 07/25/2024, 03/13/2024, 01/17/2024 HIB Vaccines Aged Out No longer eligi ble based on patient's age to complete this topic Hepatitis A Vaccines Aged Out No long er eligible based on patient's age to complete this topic IPV Vaccines Aged Out No longer eligi ble based on patient's age to complete this topic Meningococcal B Vaccine Aged Out No l onger eligible based on patient's age to complete this topic Meningococcal Vaccine Aged Out No mode ricardo eligible based on patient's age to complete this topic Pneumococcal Vaccine: Pediatrics (0 to 5 Years) and At-Risk Patients (6 to 49) Years Aged Out No longer eligible based on patient's age to complete this topic RSV under 20 months Aged Out No longe r eligible based on patient's age to complete this topic Rotavirus Vaccines Aged Out No longer eligible based on patient's age to complete this topic Procedures Procedure Name Priority Date/Time Associated Diagnosis Comments POCT , URINE Routine 03/06/2025 2:30 PM EDT Other back pain, unspecified chronicity POCT URINALYSIS DIPSTICK Routine 03/06/2025 2:21 PM EDT Other back pain, unspecified chronicity PROPHYLAXIS - ADULT Routine 07/04/2024 2 :30 PM EST BITEWINGS - 4 RADIOGRAPHIC IMAGES Routine 07/04/2024 2:30 PM EST PERIODIC ORAL EVALUATION - ESTABLISHED PATIENT Routine 07/04/2024 2:30 PM EST INTRAORAL - COMPLETE SERIES OF RADIOGRAPHIC IMAGES Routine 11/09/2023 3:00 PM EDT HIV 1/2 ANTIGEN/ANTIBODY, FOURTH GENERATION W/RFL Routine 10/13/2023 Screening for HIV (human immunodeficiency virus) HM PAP/HPV Routine 05/07/2001 11:14 AM EST from Last 3 Months or Most Recently Relevant to Health Maintenance Results * POCT Urine (03/06/2025 2:30 PM EDT) Preg Test, Ur Negative Negative, Indeterminate, None Detected, Invalid, Specimen unsatisfactory for evaluation, Weakly Positive, 2+ QC Media Lot # [id number] Lot# Expiration Date , Urine 03/06/2025 2:30 PM EDT Nuno Rudolph MD POINT OF CARE TEST EN TER/EDIT ORDERABLES Final Result * (ABNORMAL) POCT urinalysis dipstick manually resulted (CPT 47608) (03/06/2025 2:21 PM EDT) Color, UA Yellow Clarity, UA Clear Glucose, UA Negative Bilirubin, UA Negative Ketones, UA Negative Spec Grav, UA 1.025 Blood, UA Positive(A) Negative, None Detected pH, UA 6.5 Protein, UA Negative Urobilinogen, UA 0.2 Leukocytes, UA Negative Negative, Rare, Trace Nitrite, UA Negative Negative, None Detected Appearance, UA clear QC Media Lot # [id number] Lot# Expiration Date , Urine (Urine, Random) 03/06/2025 2:21 PM EDT Nuno Rudolph MD POINT OF CARE TEST EN TER/EDIT ORDERABLES Final Result * HIV-1/2 Antigen and Antibodies, Fourth Generation, with Reflexes (10/13/2023) Blood Venous blood specimen / Unknown [facility] LAB BLOOD ORDERABLES Manuela l Result EXTERNAL LAB * HM PAP/HPV (05/07/2001 11:14 AM EST) [facility] HEALTH MAINTENANCE Final Result from Last 3 Months or Most Recently Relevant to Health Maintenance Insurance [facility] Member Subscriber Plan / Payer (Ef fective 2023-Present) Name:Steph Martinez Relation to Subscriber:Self Name:Steph Martinez Payer ID:Not on file Group ID:Not on file Type:Medicaid Address: [address] FULL [facility] LIMITED HSN FULL [facility] D[facility]AL - [facility]SN FULL (MEDICAID) Care Teams Photoengraving Supervisor Relationship Specialty Start Date End Date Cherie Chase MD [address] [place] [phone] PCP - General Family Medicine 06/21/24
--- OUTSIDE RECORDS SUMMARY | 2025-04-21 07:15 | XMS_ITS ---
Author Organization Unknown ENCOUNTERS Encounter Performer Location Date Diagnosis Diagnosis Status Emergency [address] [place] [id number] HOME *Note: Encounters from your own facility or health system may be excluded. Allergies, Adverse Reactions, Alerts Allergen Type Severity Identification Date Medications Name Date Quantity Days Supplied GPI Number
== END 2025-04-21 07:14 | disposition home or self-care (01) ==
LOC: HO.CT 07:13
PROVIDERS: Visit Provider Internal Medicine
DX: M54.89 Other dorsalgia (principal)
CPT/HCPCS: 74176

== ENCOUNTER → 2025-04-21 07:15 | Outpatient (BNV) | payer MEDICAID, SELFPAY | PROVIDERS: Visit Provider Radiology Diagnostic Ultrasound | DX: N20.0 Calculus of kidney (principal); R16.0 Hepatomegaly, not elsewhere classified | CPT/HCPCS: 74176 ==